=== PATIENT | male | born 1990 | race Caucasian/White ===

== ENCOUNTER → 2019-12-03 08:29 | Outpatient (BNVA) | payer SELFPAY | PROVIDERS: Family Provider Nurse Practitioner Family; PCP Nurse Practitioner Family; Visit Provider Nurse Practitioner Family | DX: R25.2 Cramp and spasm (principal); R53.83 Other fatigue; M79.606 Pain in leg, unspecified | CPT/HCPCS: 80048; 83735; 85025; 85651 ==

== ENCOUNTER → 2022-02-25 09:24 | Outpatient (BNVA) | payer OTHER, MEDICAID, SELFPAY | PROVIDERS: Family Provider Nurse Practitioner Family; PCP Nurse Practitioner Family; Visit Provider Nurse Practitioner Family | DX: E78.5 Hyperlipidemia, unspecified (principal); I10 Essential (primary) hypertension | CPT/HCPCS: 80053; 80061 ==

== ENCOUNTER → 2022-04-04 10:12 | Outpatient (BNVA) | payer MEDICAID, OTHER, SELFPAY | PROVIDERS: Family Provider Nurse Practitioner Family; PCP Nurse Practitioner Family; Visit Provider Nurse Practitioner Family | DX: R74.8 Abnormal levels of other serum enzymes (principal) | CPT/HCPCS: 82977; 83615; 84450; 84460 ==

== ENCOUNTER → 2022-04-15 10:11 | Outpatient (BNVA) | payer OTHER, MEDICAID, SELFPAY | PROVIDERS: Family Provider Nurse Practitioner Family; PCP Nurse Practitioner Family; Visit Provider Nurse Practitioner Family | DX: R74.8 Abnormal levels of other serum enzymes (principal) | CPT/HCPCS: 86705; 86706; 86709; 86803; 87340; 87522 ==

== ENCOUNTER 2022-06-06 11:02 | Emergency (ER) | payer OTHER, MEDICAID, SELFPAY ==
[2022-06-06 11:27] VITALS: BP 149/98; PULSE 102; RESP 16; TEMP 36.6; O2SAT 99; BMI 29.1
[2022-06-06 13:41] VITALS: BP 133/81; PULSE 69; RESP 16; TEMP 36.3; O2SAT 98
--- NOTE | 2022-06-06 14:19 | W.ED.HA ---
HPI - Headache General: Chief Complaint: Headache Stated Complaint: numbness in the right arm and back of head hurts. Time Seen by Provider: 06/06/22 14:19 History of Present Illness: Mr Rigsg is a 31-year-old gentleman with history of hepatitis C on treatment, hypertension, hyperlipidemia presenting to the emergency department due to severe headache. He reports being at his baseline health and had sudden onset headache associated with cough at approximately 9 AM. Intensity is severe, worst headache is ever had. He also reports left sided neck pain associated with his left-sided headache, mildly worse with lights and sound. Endorses lack of dexterity and abnormal feeling in his left arm and hand associated with this at the same time. Has had headaches in the past perhaps with migrainous characteristics though no diagnosed migraine disorder. No other specific changes in health, exacerbating, or alleviating factors identified. Onset (ago): hour(s) Time: 09:00 Onset description: suddenly and other Severity: severe Quality & Timing: throbbing and sharp Exacerbating factors: movement of head/neck, light and noise Relieving factors: nothing Context: other Review of Systems General: Reports: 10 or more systems reviewed and unremarkable except in HPI and below PFSH ED PFSH: Medical History Depression HTN (hypertension) Hyperlipidemia Surgical History History of skin graft Family History Father CAD (coronary artery disease) Mother Hypertension Social History Smoking and tobacco status: current every day smoker Physical Exam Const: COMMON NORMALS: patient oriented x3 and alert GENERAL APPEARANCE: cooperative and well developed HENMT: COMMON NORMALS: normocephalic and atraumatic HEAD & SCALP: normocephalic and atraumatic Eye: COMMON NORMALS: conjunctivae normal CONJUNCTIVA: Yes conjunctivae normal SCLERA: sclerae normal Neck/C-Spine: COMMON NORMALS: supple GENERAL: Yes trachea midline Resp: COMMON NORMALS: clear to auscultation bilaterally EFFORT & INSPECTION: Yes able to speak in complete sentences AUSCULTATION: clear to auscultation bilaterally Cardio: COMMON NORMALS: regular rate and regular rhythm RATE: regular rate RHYTHM: regular rhythm GI: COMMON NORMALS: Soft to palpation PALPATION: Yes Soft to palpation and No Tenderness to palpation present (GI) Extremity: GENERAL: Yes normal exam except as noted and No edema Neuro: COMMON NORMALS: patient oriented x3, CN's II-XII intact bilaterally, moves all extremities and no focal motor deficits; negative for no sensory deficits noted SENSORIUM/ORIENTATION: Yes alert and No Orientation impaired Psych: COMMON NORMALS: mental status grossly normal and Normal thought process present THOUGHT PROCESS: Normal thought process present Course Vital Signs: Vital signs: Vital Signs Temperature 97.6 F 06/06/22 16:15 Pulse Rate 69 06/06/22 16:15 Respiratory Rate 16 06/06/22 16:15 Blood Pressure 140/90 06/06/22 16:15 Pulse Oximetry 98 06/06/22 16:15 Oxygen Delivery Me thod 06/06/22 13:41 MDM - Headache Medical Decision Making 31-year-old gentleman presenting with paresthesia and headache. No focal neurologic exam findings. Exam as above. Labs notable for minimal leukocytosis and likely mild hemoconcentration with mild dehydration on metabolic panel. Given patient's description of symptoms as well as associated paresthesias advanced imaging is required. CT and CTA negative for acute pathology to explain symptoms. During ED course patient treated with headache cocktail, muscle relaxer, fluids. Most likely etiology of patient's symptoms is headache with perhaps associated musculoskeletal pain. The results of ED evaluation were discussed with the patient including prescriptions and/or symptomatic cares (if applicable) including appropriate and responsible use, followup plan, and return precautions. The patient verbalized understanding and felt safe for discharge. Medical Records I reviewed the patient's medical records. Lab Data I reviewed the patient's lab results. 06/06/22 14:40 06/06/22 15:19 Radiology Impressions Head/Neck CTA 06/06/22 14:26 IMPRESSION: Normal CTA head neck Laboratory Results WBC 12.0 10^3/uL (4.0-10.0) H 06/06/22 14:40 RBC 4.76 10^6/uL (4.1-5.3) 06/06/22 14:40 Hgb 15.9 g/dL (11.7-16.6) 06/06/22 14:40 Hct 45.4 % (42.0-52.0) 06/06/22 14:40 MCV 95.4 fl (80-94) H 06/06/22 14:40 MCH 33.4 pg (28.0-34.0) 06/06/22 14:40 MCHC 35.0 g/dL (30.0-36.0) 06/06/22 14:40 RDW 11.4 % (12.1-15.1) L 06/06/22 14:40 Plt Count 294 10^3/cmm (130-400) 06/06/22 14:40 MPV 9.9 fL (7.4-10.4) 06/06/22 14:40 Neut % (Auto) 69.0 % 06/06/22 14:40 Lymph % (Auto) 23.5 % 06/06/22 14:40 Day % (Auto) 5.8 % 06/06/22 14:40 Eos % (Auto) 1.2 % 06/06/22 14:40 Baso % (Auto) 0.2 % 06/06/22 14:40 Neut # (Auto) 8.29 10^3/uL (1.8-7.7) H 06/06/22 14:40 Lymph # (Auto) 2.8 10^3/uL (0.8-4.8) 06/06/22 14:40 Day # (Auto) 0.7 10^3/uL (0.2-0.9) 06/06/22 14:40 Eos # (Auto) 0.1 10^3/uL (0.0-0.8) 06/06/22 14:40 Baso # (Auto) 0.0 10^3/uL (0.0-0.1) 06/06/22 14:40 Nucleated RBC % (auto) 0 % 06/06/22 14:40 Nucleated RBCs # 0.0 /100WBC 06/06/22 14:40 Sodium 134 mmol/L (136-145) L 06/06/22 15:19 Potassium 4.1 mmol/L (3.5-5.1) 06/06/22 15:19 Chloride 101 mmol/L (98-107) 06/06/22 15:19 Carbon Dioxide 23 mmol/L (22-29) 06/06/22 15:19 Anion Gap 14.1 (5-19) 06/06/22 15:19 BUN 9 mg/dL (6-20) 06/06/22 15:19 Creatinine 0.8 mg/dL (0.7-1.2) 06/06/22 15:19 GFR Calculation 112.0 mL/min (90-130) 06/06/22 15:19 Glucose 76 mg/dL (65-115) 06/06/22 15:19 Calculated Osmolality 275 mOsm/kg (285-295) L 06/06/22 15:19 Calcium 8.8 mg/dL (8.5-10.5) 06/06/22 15:19 Total Bilirubin 0.5 mg/dL (0.15-1.2) 06/06/22 15:19 AST 19 U/L (0-40) 06/06/22 15:19 ALT 21 U/L (0-41) 06/06/22 15:19 Alkaline Phosphatase 61 U/L (40-130) 06/06/22 15:19 Total Protein 7.0 g/dL (6.6-8.7) 06/06/22 15:19 Albumin 4.0 g/dL (3.5-5.2) 06/06/22 15:19 Globulin 3.0 g/dL (1.3-4.6) 06/06/22 15:19 Discharge Plan Discharge Patient Disposition: Home Clinical Impression: Migraine, Paresthesia Condition: Stable Prescriptions: New cyclobenzaprine 10 mg tablet 10 mg PO TID PRN (Reason: neck pain) Qty: 10 0RF Reglan 10 mg tablet 10 mg PO Q6H PRN (Reason: migraine headache) Qty: 10 0RF No Action Epclusa 400-100 mg tablet 1 tab PO DAILY lisinopril 20 mg tablet 20 mg PO DAILY fluoxetine 20 mg capsule 20 mg PO DAILY Marifer 60 mg Tablet 60 mg PO BID Discharge Orders: Discharge ED (Routine); Ordered 06/06/22 Ordered By: James German Referrals: Lanny Meraz FNP [Primary Care Provider] - Discharge Diet: Usual diet Discharge Activity: Increase activity as tolerated Patient Instructions: Migraine Headache (ED), Paresthesia (ED), Cervical Radiculopathy (ED), Pain Management Activity Restrictions/Additional Instructions: Thank you for visiting the emergency department. You were seen and evaluated for sudden onset headache with paresthesias. The exact cause of your symptoms is unclear though may be related to nerve irritation and migraine. We are pleased that you had improvement in the emergency department. I would expect improvement in the next few days. I will discharge you with muscle relaxers and steroids, you may also use [id number] medications however please do not exceed the daily recommended dosage and please keep in mind that many namebrand medications contain the same active ingredients. Return to the emergency department for uncontrolled symptoms, any new neurologic symptoms, or anything else that you are concerned about a feel needs emergency department evaluation. Coding Level of Care Code ED Telecommunications Administrator for Samia Mcnulty Exam Comprehensive
--- NOTE | 2022-06-06 14:26 | CT_ITS ---
WS: [id number] CTA HEAD AND NECK TECHNIQUE: Contrast enhanced CTA of the head and neck with coronal and sagittal reformatted images an d maximum intensity projection (MIP) images. NASCET criteria utilized. CLINICAL INFORMATION: L sided headache, arm numbness, onset 9 am sudden COMPARISON: None. DLP: 1075.[address] scans at [facility] use at least one of these dose optimization techniques: automated e xposure control; mA and/or kV adjustment per patient size (includes targeted exams where dose is matc hed to clinical indication); or iterative reconstruction. FINDINGS: No evidence of intracranial hemorrhage or mass effect. Normal duke-white differentiation. N o hydrocephalus. Mastoid air cells are well aerated. Mild mucosal thickening in the ethmoid air cells . Normal posterior nasopharynx. RIGHT: RIGHT common carotid artery is patent. No significant RIGHT ICA stenosis.RIGHT ICA is patent t o the skull base. LEFT: LEFT common carotid artery is patent. No significant LEFT ICA stenosis. LEFT ICA is patent to t he skull base. INTRACRANIAL CTA: RIGHT dominant vertebral artery. Tiny but patent LEFT vertebral artery. Basilar artery is patent. Persistent LEFT SUPERVISOR LINE DEPARTMENT. Normal RIGHT SUPERVISOR LINE DEPARTMENT. Both ICAs are patent at the sk ull base. Normal vascularity to the AMOL and MCA territories bilaterally. No evidence of proximal flow limiting stenosis or aneurysm. Hypoplastic LEFT A1 segment. Normal parapharyngeal fat. Normal posterior nasopharynx. No cervical lymphadenopathy. CT/CT angio headne* [id number] IMPRESSION: Normal CTA head neck
[2022-06-06] MEDS: iohexol 350 mg/mL 500 mL Btl (per mL) IV (14:44)
[2022-06-06 14:49] LABS: Basophils % 0.2 %; Eosinophils # 0.1 10^3/uL (0.0-0.8); Eosinophils % 1.2 %; Hematocrit 45.4 % (42.0-52.0); Hemoglobin 15.9 g/dL (11.7-16.6); Lymphocytes # 2.8 10^3/uL (0.8-4.8); Lymphocytes % 23.5 %; Mean Corpuscular Hemoglobin 33.4 pg (28.0-34.0); Mean Corpuscular Volume 95.4 fl (80-94); Mean Platelet Volume 9.9 fL (7.4-10.4); Monocytes # 0.7 10^3/uL (0.2-0.9); Monocytes % 5.8 %; Neutrophils # 8.29 10^3/uL (1.8-7.7); Nucleated Red Blood Cells % 0 %; Platelet Count 294 10^3/cmm (130-400); Red Blood Count 4.76 10^6/uL (4.1-5.3); Red Cell Distribution Width 11.4 % (12.1-15.1)
[2022-06-06] MEDS: metoclopramide 5 mg/mL SDV 2 mL 10 MG IVP (14:51)
[2022-06-06] MEDS: acetaminophen 500 mg Tablet 1000 MG PO (14:51)
[2022-06-06] MEDS: cyclobenzaprine 10 mg Tablet PO (14:51)
[2022-06-06] MEDS: diphenhydrAMINE 50 mg/mL SDV 1mL 25 MG IVP (14:52)
[2022-06-06] MEDS: sodium chloride 0.9% 1,000 ML 999 ML IV (14:52)
[2022-06-06 15:47] LABS: Alanine Aminotransferase 21 U/L (0-41); Alkaline Phosphatase 61 U/L (40-130); Anion Gap 14.1 (5-19); Aspartate Amino Transferase 19 U/L (0-40); Blood Urea Nitrogen 9 mg/dL (6-20); Calcium 8.8 mg/dL (8.5-10.5); Carbon Dioxide 23 mmol/L (22-29); Chloride 101 mmol/L (98-107); Glucose 76 mg/dL (65-115); Osmolality Calculated 275 mOsm/kg (285-295); Potassium 4.1 mmol/L (3.5-5.1); Sodium 134 mmol/L (136-145); Total Bilirubin 0.5 mg/dL (0.15-1.2)
[2022-06-06 16:15] VITALS: BP 140/90; PULSE 69; RESP 16; TEMP 36.4; O2SAT 98
== END 2022-06-06 16:10 | disposition home or self-care (01) ==
PROVIDERS: Emergency Provider Emergency Medicine; PCP Nurse Practitioner Family
DX: R20.0 Anesthesia of skin (principal); G43.909 Migraine, unspecified, not intractable, without status migrainosus
CPT/HCPCS: 70496; 70498; 80053; 85025; 96361; 96374; 96375; 99284; J1200; J2765; J7030; Q9967

== ENCOUNTER → 2023-01-20 11:00 | Outpatient (BNVA) | payer OTHER, MEDICAID, SELFPAY | PROVIDERS: PCP Nurse Practitioner Family; Visit Provider Nurse Practitioner Family | DX: I10 Essential (primary) hypertension (principal) | CPT/HCPCS: 80053; 80061 ==

== ENCOUNTER → 2025-03-27 10:50 | Outpatient (BNVA) | payer OTHER, SELFPAY | PROVIDERS: PCP Nurse Practitioner Family; Visit Provider Nurse Practitioner Family | DX: E78.5 Hyperlipidemia, unspecified (principal); I10 Essential (primary) hypertension | CPT/HCPCS: 80053; 80061 ==